=== PATIENT | female | born 1945 | race Caucasian/White ===

== ENCOUNTER 2025-05-22 12:42 | Outpatient (CLI) | payer MEDICARE, MEDICAID ==
--- NOTE | 2025-05-22 14:31 | RADIOLOGY REPORT ---
CLINICAL HISTORY: UNILATERAL PRIMARY OSTEOARTHRITIS, RIGHT KNEE COMPARISON: None TECHNIQUE: Multisequence multiplanar MRI images of the right knee were obtained without contrast. FINDINGS: Cruciate ligaments: ACL and PCL are intact. Extensor mechanism: Quadriceps mechanism and patellar tendon are intact. There is ossification along the proximal patellar tendon and distal quadriceps mechanism. Mild edema and trace fluid in the prepa tellar and superficial infrapatellar bursae. Collateral ligaments: Medial and lateral collateral ligaments are intact and otherwise unremarkable. Menisci: Lateral meniscus is intact. Diminutive posterior horn and body of the medial meniscus with extensive blunting of the free edge in these locations, may be seen with prior meniscal surgery, free edge tear, or extensive free edge fraying. 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 Chondral thinning and areas of near full-thickness chondral loss in the lateral compartment. Grade 4 chondroma lacia in the patellofemoral compartment with large areas of full-thickness chondral loss in the farah la and adjacent portions of the trochlea with associated subchondral edema and subchondral cystic katharina nge. Bones: No acute fracture or focal marrow contusion. Severe arthritic changes in the medial and patell ofemoral compartments with joint space narrowing, subchondral cystic change, and marginal osteophytes . Moderate arthritic changes in the lateral compartment. Joint fluid: Moderate joint effusion with moderate synovitis. Other: Trace popliteal cyst. IMPRESSION: 1. 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 2. Attenuated fibers of the medial meniscus posterior horn and body with blunting of the free edges, may be seen with prior meniscal surgery, Free edge tear, or free edge fraying. Correlate with clinica l findings and prior surgical history. 3. Moderate joint effusion with moderate synovitis. 4. Additional findings as described above.
== END 2025-05-22 23:59 | disposition home or self-care (01) ==
LOC: MRI02 12:42
PROVIDERS: ATTEND General Practice
DX: M17.11 Unilateral primary osteoarthritis, right knee (principal); M94.261 Chondromalacia, right knee; M25.461 Effusion, right knee; R60.0 Localized edema; M65.98 Unspecified synovitis and tenosynovitis, other site; M67.863 Other specified disorders of tendon, right knee; M25.861 Other specified joint disorders, right knee; M25.761 Osteophyte, right knee
CPT/HCPCS: 73721